=== PATIENT | female | born 1990 | race Caucasian/White ===

== ENCOUNTER → 2024-02-04 13:30 | Outpatient (REF) | payer OTHER, SELFPAY | LOC: PNTC 13:30 | PROVIDERS: ATTENDING PHYSICIAN Obstetrics & Gynecology | DX: O35.14 Maternal care for (suspected) chromosomal abnormality in fetus, Turner Syndrome (principal) | CPT/HCPCS: 36415; 59000; 76946 ==

== ENCOUNTER → 2024-02-11 11:34 | Outpatient (REF) | payer OTHER, SELFPAY | LOC: PNTC 11:34 | PROVIDERS: ATTENDING PHYSICIAN Obstetrics & Gynecology | DX: O35.14 Maternal care for (suspected) chromosomal abnormality in fetus, Turner Syndrome (principal); O43.219 Placenta accreta, unspecified trimester | CPT/HCPCS: 76805; 93976 ==

== ENCOUNTER → 2024-03-06 09:31 | Outpatient (REF) | payer OTHER, SELFPAY | LOC: PNTC 09:31 | PROVIDERS: ATTENDING PHYSICIAN Obstetrics & Gynecology | DX: O09.529 Supervision of elderly multigravida, unspecified trimester (principal); Z87.59 Personal history of other complications of pregnancy, childbirth and the puerperium; O41.00X0 Oligohydramnios, unspecified trimester, not applicable or unspecified | CPT/HCPCS: 76811 ==